=== PATIENT | female | born 1950 | race Two or more races ===

== ENCOUNTER → 2018-02-19 | Emergency (ER) | payer OTHER ==
[~2018-02-19] VITALS: Ht 152.4 cm; Wt 53.5 kg
[~2018-02-19] MED LIST: HYOSCYAMINE0.125 M1 SL; INTESTINEX1 CA1 PO; LISINOPRIL20 MG; OXYC1TAB9 PO; PRILOSEC10 MG; PROTONIX40 MG PO; SIMVASTATIN10 MG; SYNTHROID50 MCG
== END | disposition home or self-care (01) ==
LOC: ER 18:12
DX: K64.8 Other hemorrhoids (principal)

== ENCOUNTER 2022-12-10 21:18 | Emergency (ER) | payer OTHER ==
[~2022-12-10] VITALS: Ht 154.9 cm; Wt 54.4 kg
== END 2022-12-11 00:08 | disposition home or self-care (01) ==
LOC: ER 21:18
DX: R07.89 Other chest pain (principal); Z88.8 Allergy status to other drugs, medicaments and biological substances; Z20.822 Contact with and (suspected) exposure to COVID-19

== ENCOUNTER 2023-07-02 04:08 | Emergency (ER) | payer OTHER ==
[~2023-07-02] VITALS: Ht 154.9 cm; Wt 52.2 kg
== END 2023-07-02 09:45 | disposition home or self-care (01) ==
LOC: ER 04:08
PROVIDERS: General Practice
DX: R00.2 Palpitations (principal); E03.9 Hypothyroidism, unspecified; I10 Essential (primary) hypertension; Z88.8 Allergy status to other drugs, medicaments and biological substances; R11.0 Nausea; R55 Syncope and collapse